=== PATIENT | male | born 1950 | race Caucasian/White ===

== ENCOUNTER 2023-04-27 08:46 | Inpatient (IN) | payer MEDICARE, OTHER ==
[2023-04-27 09:32] LABS: #Eosinphils 0.3 thou/uL (0.0-0.7); #Monocytes 0.8 thou/uL (0.11-0.59); #Neutrophils 5.7 thou/uL (1.40-6.50); %Basophils 0.5 % (0.0-1.0); %Eosinophils 3.7 % (0.0-10.0); %Lymphocytes 15.5 % (21.0-51.0); %Monocytes 9.9 % (0.0-10.0); %Neutrophils 70.2 % (42.0-75.0); Hematocrit 41.3 % (42.0-52.0); Hemoglobin 13.7 g/dL (14.0-18.0); Mean Corpuscular HGB CONC 33.2 g/dL (32.0-36.0); Mean Corpuscular Hemoglobin 31.7 pg (27.0-31.0); Mean Corpuscular Volume 95.6 fl (78.0-98.0); Mean Platelet Volume 11.8 fL (7.4-10.4); Platelet Count 174 10x3/uL (130-400); RBC Distribution Width 14.1 % (11.5-14.5); Red Blood Cell (RBC) Count 4.32 mill/uL (4.70-6.10); White Blood Cell (WBC) Count 8.1 10x3/uL (4.8-10.8)
[2023-04-27 09:51] LABS: ALT (SGPT) 77 U/L (8-55); AST (SGOT) 51 U/L (5-34); Albumin 3.9 g/dL (3.4-4.8); Alkaline Phosphatase 101 U/L (40-110); Anion Gap 13 mmol/L (10-20); BUN (Urea Nitrogen) 19 mg/dL (8.4-25.7); Bilirubin, Total 1.2 mg/dL (0.2-1.2); Calc. Creatinine Clearance 0 mL/min (70-130); Carbon Dioxide 22 mmol/L (23-31); Chloride 108 mmol/L (98-107); Estimated GFR 53; Globulin 2.6 g/dL (2.4-3.5); Glucose 113 mg/dL (83-110); Potassium 4.1 mmol/L (3.5-5.1); Protein, Total 6.5 g/dL (5.8-8.1); Sodium 139 mmol/L (136-145)
[2023-04-27 09:56] LABS: Troponin I 0.014 ng/mL (< 0.028)
[2023-04-27] MEDS ORDERED: Atropine Sulfate 1 mg/10 ml Syringe ONE (10:32)
[2023-04-27] MEDS ORDERED: Ondansetron PF 4 MG/2 ML Vial IVP PRN (11:35)
[2023-04-27] MEDS ORDERED: Ondansetron ODT 4 MG TAB PO PRN (11:35)
[2023-04-27] MEDS ORDERED: Acetaminophen 325 MG TAB PO PRN (11:35)
[2023-04-27 13:16] VITALS: BMI 30.7
[2023-04-27] MEDS: Tamsulosin HCl 0.4 MG CAP PO SCH (20:18)
[2023-04-27] MEDS: Sulfameth/Trimethoprim DS 800-160mg TAB PO SCH (20:18)
[2023-04-28 04:39] LABS: #Eosinphils 0.2 thou/uL (0.0-0.7); #Monocytes 0.8 thou/uL (0.11-0.59); #Neutrophils 5.2 thou/uL (1.40-6.50); %Basophils 0.5 % (0.0-1.0); %Eosinophils 3.2 % (0.0-10.0); %Lymphocytes 15.3 % (21.0-51.0); %Monocytes 10.7 % (0.0-10.0); %Neutrophils 70.2 % (42.0-75.0); Hematocrit 38.7 % (42.0-52.0); Hemoglobin 12.9 g/dL (14.0-18.0); Mean Corpuscular HGB CONC 33.3 g/dL (32.0-36.0); Mean Corpuscular Hemoglobin 31.1 pg (27.0-31.0); Mean Corpuscular Volume 93.3 fl (78.0-98.0); Mean Platelet Volume 12.1 fL (7.4-10.4); Platelet Count 155 10x3/uL (130-400); RBC Distribution Width 14.2 % (11.5-14.5); Red Blood Cell (RBC) Count 4.15 mill/uL (4.70-6.10); White Blood Cell (WBC) Count 7.4 10x3/uL (4.8-10.8)
[2023-04-28 05:05] LABS: Anion Gap 11 mmol/L (10-20); BUN (Urea Nitrogen) 17 mg/dL (8.4-25.7); Calc. Creatinine Clearance 77 mL/min (70-130); Calcium 8.8 mg/dL (7.8-10.44); Carbon Dioxide 22 mmol/L (23-31); Chloride 108 mmol/L (98-107); Estimated GFR 55; Glucose 103 mg/dL (83-110); Sodium 137 mmol/L (136-145)
[2023-04-28] MEDS: Sulfameth/Trimethoprim DS 800-160mg TAB PO SCH (09:06)
[2023-04-28] MEDS ORDERED: Piperacillin/Tazobactam 3.375 GM in Sodium Chloride 0.9% 100 ML IVPB SCH ×2 (09:45→10:00)
[2023-04-28] MEDS ORDERED: Lidocaine 1% (PF) 30 ML VIAL ONE ×2 (11:21→11:59)
[2023-04-28] MEDS ORDERED: Midazolam HCl 2 mg/2 ml Vial ONE (11:59)
[2023-04-28] MEDS ORDERED: fentaNYL 50 mcg/mL 1 mL Vial ONE (11:59)
[2023-04-28] MEDS ORDERED: CEFAZOLIN 2 GM VIAL ONE (11:59)
[2023-04-28] MEDS ORDERED: Gentamicin 80 MG/2 ML VIAL ONE (11:59)
[2023-04-28] MEDS ORDERED: Acetaminophen/Codeine 30-300mg Tablet PO PRN (13:04)
[2023-04-28] MEDS: Piperacillin/Tazobactam 3.375 GM in Sodium Chloride 0.9% 100 ML IVPB SCH ×2 (14:38→21:30)
[2023-04-28] MEDS: Cephalexin 250 MG CAP PO SCH (18:18)
[2023-04-28] MEDS: Tamsulosin HCl 0.4 MG CAP PO SCH (21:30)
[2023-04-29] MEDS: Cephalexin 250 MG CAP PO SCH ×3 (00:51→13:00)
[2023-04-29 04:33] LABS: #Basophils 0.1 thou/uL (0.0-0.2); #Eosinphils 0.4 thou/uL (0.0-0.7); #Monocytes 0.7 thou/uL (0.11-0.59); #Neutrophils 4.6 thou/uL (1.40-6.50); %Basophils 0.8 % (0.0-1.0); %Eosinophils 5.8 % (0.0-10.0); %Lymphocytes 12.2 % (21.0-51.0); %Monocytes 11.3 % (0.0-10.0); %Neutrophils 69.7 % (42.0-75.0); Hematocrit 39.6 % (42.0-52.0); Hemoglobin 13.1 g/dL (14.0-18.0); Mean Corpuscular HGB CONC 33.1 g/dL (32.0-36.0); Mean Corpuscular Hemoglobin 31.6 pg (27.0-31.0); Mean Corpuscular Volume 95.4 fl (78.0-98.0); Mean Platelet Volume 11.8 fL (7.4-10.4); Platelet Count 142 10x3/uL (130-400); RBC Distribution Width 13.9 % (11.5-14.5); Red Blood Cell (RBC) Count 4.15 mill/uL (4.70-6.10); White Blood Cell (WBC) Count 6.6 10x3/uL (4.8-10.8)
[2023-04-29 04:58] LABS: Anion Gap 12 mmol/L (10-20); BUN (Urea Nitrogen) 16 mg/dL (8.4-25.7); Calc. Creatinine Clearance 76 mL/min (70-130); Calcium 8.7 mg/dL (7.8-10.44); Carbon Dioxide 21 mmol/L (23-31); Chloride 108 mmol/L (98-107); Estimated GFR 55; Glucose 93 mg/dL (83-110); Sodium 137 mmol/L (136-145)
[2023-04-29] MEDS: Piperacillin/Tazobactam 3.375 GM in Sodium Chloride 0.9% 100 ML IVPB SCH (05:51)
[2023-04-29 08:18] VITALS: BP 142/67; TEMP 98.2
== END 2023-04-29 13:12 | disposition home or self-care (01) | DRG 242 ==
LOC: ERS 08:46 → ERHOLD 10:37 → 2NO 16:06 → OBSVTOIN 04-28 11:27
PROVIDERS: ADMIT Family Medicine; ATTEND Family Medicine
PROC: 0JH606Z Insertion of Pacemaker, Dual Chamber into Chest Subcutaneous Tissue and Fascia, Open Approach (ICD-10-PCS; principal; 2023-04-28)
PROC: 02HK3JZ Insertion of Pacemaker Lead into Right Ventricle, Percutaneous Approach (ICD-10-PCS; 2023-04-28)
PROC: 02H63JZ Insertion of Pacemaker Lead into Right Atrium, Percutaneous Approach (ICD-10-PCS; 2023-04-28)
DX: R00.1 Bradycardia, unspecified (principal); I50.43 Acute on chronic combined systolic (congestive) and diastolic (congestive) heart failure; L03.116 Cellulitis of left lower limb; N40.0 Benign prostatic hyperplasia without lower urinary tract symptoms; M13.162 Monoarthritis, not elsewhere classified, left knee; I35.0 Nonrheumatic aortic (valve) stenosis; M70.42 Prepatellar bursitis, left knee; F10.90 Alcohol use, unspecified, uncomplicated; Z87.891 Personal history of nicotine dependence
CPT/HCPCS: 33208; 36415; 71045; 80048; 80053; 83880; 84443; 84484; 84550; 85025; 85379; 93005; 93010; 93306; 93798; 96374; 96376; 97139; 99152; 99153; C1785; C1898; J0461; J1580; J2001; J2250; J2543; J3010; J3490

== ENCOUNTER 2025-07-21 09:23 | Outpatient (CLI) | payer MEDICARE, OTHER | END 2025-07-21 09:24 | disposition home or self-care (01) | LOC: BICRAD 09:23 | PROVIDERS: ATTEND Family Medicine | DX: M79.651 Pain in right thigh (principal) ==